=== PATIENT | female | born 2000 | race Native Hawaiian/Other Pacific Islander ===

== ENCOUNTER 2021-03-09 15:17 | Emergency (ER) | payer OTHER ==
[~2021-03-09] VITALS: Ht 160 cm; Wt 122.5 kg
[2021-03-09 15:23] VITALS: BP 161/96; TEMP 97.2
== END 2021-03-09 17:30 | disposition home or self-care (01) ==
LOC: ED 15:17
DX: S93.492A Sprain of other ligament of left ankle, initial encounter (principal); R03.0 Elevated blood-pressure reading, without diagnosis of hypertension; W01.0XXA Fall on same level from slipping, tripping and stumbling without subsequent striking against object, initial encounter; Y92.098 Other place in other non-institutional residence as the place of occurrence of the external cause
CPT/HCPCS: 99283

== ENCOUNTER 2021-03-13 08:34 | Emergency (ER) | payer OTHER ==
[~2021-03-13] VITALS: Ht 160 cm; Wt 122.5 kg
[2021-03-13 08:42] VITALS: TEMP 98
[2021-03-13 11:02] VITALS: BP 145/78
== END 2021-03-13 11:02 | disposition home or self-care (01) ==
LOC: ED 08:34
DX: M54.59 Other low back pain (principal); M51.27 Other intervertebral disc displacement, lumbosacral region
CPT/HCPCS: 80307; 81000; 81025; 96372; 99283; J2920